=== PATIENT | male | born 1970 | race Caucasian/White ===

== ENCOUNTER → 2016-04-14 | Outpatient (CLI) | payer BC ==
[~2016-04-14] MED LIST: CZR50 PO; PRLSR20 PO
[2016-04-14 10:18] LABS: URINE APPEARANCE CLEAR (CLEAR); URINE BILIRUBIN NEG (NEG); URINE COLOR YELLOW; URINE NITRITE NEG (NEG); URINE PH 7.5 (4.5-7.5); URINE SPECIFIC GRAVITY 1.013 (1.000-1.030); UROBILINOGEN NEG (NEG)
[2016-04-14 10:19] LABS: MANUAL MICROSCOPIC REQUIRED? NO; REVIEW REQ? NO
[2016-04-14 10:29] LABS: BLOOD UREA NITROGEN 25 mg/dl (7-18); GLUCOSE 109 mg/dl (70-99)
[2016-04-14 10:30] LABS: BUN/CREATININE RATIO 22.9 (10-20); CALCIUM 9.3 mg/dl (8.5-10.1); CARBON DIOXIDE 29 mmol/L (21-32); CHLORIDE 100 mmol/L (98-107); PHOSPHORUS 3.1 mg/dl (2.5-4.9); SODIUM 138 mmol/L (136-145)
== END | disposition home or self-care (01) ==
LOC: C.LAB1850 09:21
PROVIDERS: ATTEND Internal Medicine Nephrology
DX: I10 Essential (primary) hypertension (principal); R31.29 Other microscopic hematuria

== ENCOUNTER → 2016-04-14 | Outpatient (CLI) | payer BC ==
--- NOTE | 2016-04-14 09:23 | DIAGNOSTIC IMAGING REPORT ---
ULTRASOUND KIDNEYS AND BLADDER CLINICAL HISTORY: Hypertension. COMPARISON STUDY: Abdominal CT dated 04/01/2012. TECHNIQUE: Real-time, grayscale, and color flow sonography of the kidneys and bladder is performed. Images are reviewed in the transverse and longitudinal planes. FINDINGS: Kidneys: The kidneys are normal in size and echotexture. The right kidney measures 11.4 x 5.8 x 4.9 cm and the left kidney measures 10.7 x 5.3 x 5.2 cm. There is no hydronephrosis. No shadowing renal calculi are identified. There is no sonographic evidence of contour deforming renal mass lesion. No perinephric fluid is identified. Bladder: The partially decompressed bladder is grossly normal in appearance. Ureteral jets were not seen. Survey images of the right upper quadrant shown echogenic liver consistent with steatosis. IMPRESSION: 1. The kidneys are normal in size and without hydronephrosis. 2. The partially decompressed bladder is grossly unremarkable. 3. Hepatic steatosis. Electronically signed by: Tim Irene M.D. 04/14/2016 9:21 AM Dictated Date/Time: 04/14/2016 9:20 AM
--- NOTE | 2016-04-14 09:25 | DIAGNOSTIC IMAGING REPORT ---
DUPLEX RENAL ARTERY ULTRASOUND HISTORY: I10 Uncontrolled hypertension COMPARISON STUDY: Abdomen and pelvis CT 04/01/2012. FINDINGS: The peak systolic velocity within the right renal artery was 80 cm/s. The peak systolic velocity within the left renal artery was 115 cm/s proximally. All resistive indices of the renal arcuate arteries were less than 0.6 IMPRESSION: No evidence for renal artery stenosis. Electronically signed by: Harsha Rae M.D. 04/14/2016 9:23 AM Dictated Date/Time: 04/14/2016 9:21 AM
== END | disposition home or self-care (01) ==
LOC: C.ULTR 08:37
PROVIDERS: ATTEND Internal Medicine Nephrology
DX: I10 Essential (primary) hypertension (principal)

== ENCOUNTER 2017-05-09 12:20 | Observation (INO) | payer BC, OTHER ==
[~2017-05-09] VITALS: Ht 170.2 cm; Wt 88.1 kg
--- NOTE | 2017-05-09 13:10 | EMERGENCY ROOM VISIT NOTE ---
History Report prepared by Ita: Mariana Roca Under the Supervision of: Dr. Vicente Angeles M.D. First contact with patient: 13:00 Chief Complaint: CHEST PAIN Stated Complaint: L ARM PAIN, DIZZY Nursing Triage Summary: Patient with left upper arm pain to elbow for the last two days Chest pain in the waiting room History of Present Illness The patient is a 47 year old male who presents to the Emergency Room with complaints of persistent left arm pain for three hours. He notes the pain began a couple of days ago and was intermittent, though today the pain is persistent and has been ongoing for three hours. He states that he feels the pain is mostly in his left elbow. He currently rates his pain a 2/10 in severity. He notes brief chest pain that last for a second earlier today, while waiting in the ED. He denies any shortness of breath. He denies any headache, though notes dizziness. He denies any history of DM or HLD. He has a history of HTN. He denies any neck pain. He denies any leg swelling or injures to arm. He took 324 mg Aspirin today. He is right hand dominant. Source of History: patient Onset: three hours Position: arm (left) Symptom Intensity: 2/10 Timing: other (persistent) Associated Symptoms: + chest pain, No headache, No neck pain, No SOB Note: He notes dizziness. He notes pain in elbow. He denies any leg swelling or injuries to arm. Review of Systems See HPI for pertinent positives & negatives. A total of 10 systems reviewed and were otherwise negative. Past Medical & Surgical Medical Problems: (1) Atypical angina (2) Diverticulitis Colon (W/O Ment Of Hemorrhage) (3) Hyperlipidemia Nec/Nos (4) Hypertension Nos Surgical Problems: (1) History of appendectomy Old medical records were reviewed. Nurse's notes were reviewed and I agree with. Family History Cancer Diabetes mellitus Heart disease Hypertension Social History Smoking Status: Former Smoker Drug Use: none Marital Status: Housing Status: lives with family Occupation Status: employed Current/Historical Medications Scheduled Carvedilol (Coreg), 6.25 MG PO BID Esomeprazole Magnesium (Nexium), 20 MG PO QAM Hctz/Losartan (Hyzaar 25MG/100MG), 1 TAB PO QAM Allergies Coded Allergies: No Known Allergies (Verified , 05/09/17) Physical Exam Vital Signs Date Time Temp Pulse Resp B/P (MAP) Pulse Ox O2 Delivery O2 Flow Rate FiO2 05/09/17 17:26 80 20 165/97 98 Room Air 05/09/17 16:35 79 20 135/78 99 Room Air 05/09/17 15:38 72 20 151/91 98 Room Air 05/09/17 14:31 75 20 151/89 94 Room Air 05/09/17 12:59 92 Room Air 05/09/17 12:57 36.9 05/09/17 12:53 82 05/09/17 12:50 Room Air 05/09/17 12:36 87 16 139/85 94 Room Air Physical Exam General: Non-ill appearing middle-aged male in no acute distress. HEENT: Normal cephalic atraumatic. Pupils are equal round and reactive to light. Sclerae anicteric. Extraocular movements are intact. Oropharynx is pink with moist mucous membranes. No swelling of the mouth lips or tongue. Neck: Supple with a midline trachea. No meningeal signs or stiffness, no JVD or bruits. No Stridor. Chest: Clear to auscultation bilaterally. No wheezes or rhonchi. No increased work of breathing. Heart: regular rate and rhythm. Abdomen: Soft nontender, nondistended without rebound guarding or rigidity. Extremities: No cyanosis clubbing or edema. No calf tenderness or assymetry. Normal pulse exam. Non reproducible tenderness to left arm. Spine/Back. Non tender to palpation. No CVA tenderness Skin: Good turgor without rashes. Neurologic exam: Cranial nerves two through 12 are intact. Motor and sensation are intact and symmetrical throughout. Medical Decision & Procedures ER Provider Diagnostic Interpretation: Radiology results as stated below per my review and radiologist interpretation: CHEST ONE VIEW PORTABLE CLINICAL HISTORY: 47 years-old Male presenting with chest, left upper arm pain. TECHNIQUE: Portable upright AP view of the chest was obtained. COMPARISON: None. FINDINGS: Cardiomediastinal silhouette normal. Lungs and pleural spaces clear. Degenerative changes of the thoracic spine. Right cervical C7 rib noted. Upper abdomen normal. IMPRESSION: 1. No acute cardiopulmonary disease. Electronically signed by: Valentin Silver M.D. 05/09/2017 1:25 PM Dictated Date/Time: 05/09/2017 1:24 PM L VENOUS DOPPLER UPR EXT UNIL CLINICAL HISTORY: 47 years-old Male presenting with eval for DVT. TECHNIQUE: Real-time grayscale and color and spectral Doppler ultrasound imaging of the veins of the left upper extremity was performed. Compression and augmentation were also utilized. COMPARISON: None. FINDINGS: Left: Internal jugular vein: Patent. Subclavian vein: Patent. Axillary vein: Patent. Basilic vein: Patent. Brachial vein: Duplicated veins patent. Cephalic vein: Patent. Radial vein: Patent. Ulnar vein: Patent. Other: None. IMPRESSION: No evidence of deep venous thrombosis. Electronically signed by: Valentin Silver M.D. 05/09/2017 3:43 PM Dictated Date/Time: 05/09/2017 3:42 PM Laboratory Results 05/09/17 12:50 05/09/17 12:50 Test 05/09/17 12:50 Red Blood Count 5.37 M/uL (4.7-6.1) Mean Corpuscular Volume 85.8 fL (80-100) Mean Corpuscular Hemoglobin 31.8 pg (25-34) Mean Corpuscular Hemoglobin Concent 37.1 g/dl (32-36) RDW Standard Deviation 38.5 fL (36.4-46.3) RDW Coefficient of Variation 12.2 % (11.5-14.5) Mean Platelet Volume 9.2 fL (7.4-10.4) Prothrombin Time 10.3 SECONDS (9.0-12.0) Prothromb Time International Ratio 1.0 (0.9-1.1) Activated Partial Thromboplast Time 26.6 SECONDS (21.0-31.0) Partial Thromboplastin Ratio 1.0 Anion Gap 8.0 mmol/L (3-11) Est Creatinine Clear Calc Drug Dose 61.1 ml/min Estimated GFR () 65.6 Estimated GFR (Non- 56.6 BUN/Creatinine Ratio 14.3 (10-20) Calcium Level 9.1 mg/dl (8.5-10.1) Total Bilirubin 0.8 mg/dl (0.2-1) Aspartate Amino Transf (AST/SGOT) 26 U/L (15-37) Alanine Aminotransferase (ALT/SGPT) 67 U/L (12-78) Alkaline Phosphatase 58 U/L (45-117) Total Creatine Kinase 152 U/L (39-308) Creatine Kinase MB 1.7 ng/ml (0.5-3.6) Creatine Kinase MB Ratio 1.1 (0-3.0) Troponin I < 0.015 ng/ml (0-0.045) Total Protein 8.0 gm/dl (6.4-8.2) Albumin 4.3 gm/dl (3.4-5.0) Globulin 3.7 gm/dl (2.5-4.0) Albumin/Globulin Ratio 1.2 (0.9-2) Laboratory studies as stated above per my review. ECG Indication: other (left arm pain) Rate (beats per minute): 77 Rhythm: normal sinus Findings: nonspecific-ST abn, RBBB Comparison ECG Date: no prior available Change: Repeat ECG: Normal Sinus Rhythm 69 bpm Findings: Incomplete RBBB, Nonspecific ST abnormalities, TWI laterally Patient's electrocardiogram was interpreted by me. ED Course 1301: Past medical records reviewed. The patient was evaluated in room B2, and a complete history and physical examination were performed. 1430: I reassessed the patient at this time. He appears comfortable. I discussed the results and treatment plan with the patient. I answered all pertaining questions that he had. 1540: I reassessed the patient at this time. He wants to go home. I ordered a repeat ECG and troponin. 1621: I reassessed the patient at this time. I discussed the results and treatment plan with the patient. I answered all pertaining questions that he had. He expressed understanding and verbalized agreement. The patient will be further evaluated. 1634: I spoke with Dr. Brothers, hospitalist. We discussed the patient's case. The patient will be evaluated by the [facility] for further management. Medical Decision Differentials include, but are not limited to cardiac disease, ms, DVT, and electrolyte or metabolic abnormality. This patient comes in as described above he's had left arm pain for the last several days it lasts several hours at a time he hasn't no chest pain shortness breath or other symptoms. It is focally in 1 area. There was no injury. He has 2+ distal pulses and is not particularly reproducible. There is no evidence suggest a muscular tear. He had an EKG which did not show any definite ischemic changes. Chest x-ray was unremarkable. His cardiac biomarkers initially are negative. He has no acute electrolyte or metabolic abnormalities. I did ultrasound which was unremarkable and shows no evidence of DVT. A follow-up troponin shows no change. A follow-up EKG shows T-wave slight inversions and these may be slightly worse than before where they were more flattened initially. This is a potentially subtle change but given his multiple cardiac risk factors. I do think would benefit from a cardiac workup and inpatient/observation rule out. He has taken aspirin prior to arrival. I did consult Dr. Brothers who did see him in the emergency department for these measures. The patient and his agree with the plan. Medication Reconcilliation Current Medication List: was personally reviewed by me Blood Pressure Screening Patient's blood pressure: Elevated blood pressure Referred to hospitalist. Consults Time Called: 1626 Consulting Physician: Dr. Brothers, hospitalist Returned Call: [address] Brothers, hospitalist. We discussed the patient's case. The patient will be evaluated by the [facility] for further management. Impression Primary Impression: Left arm pain Additional Impressions: Acute electrocardiogram changes Left sided chest pain Scribe Attestation The scribe's documentation has been prepared under my direction and personally reviewed by me in its entirety. I confirm that the note above accurately reflects all work, treatment, procedures, and medical decision making performed by me. Departure Information Dispostion Being Evaluated By Hospitalist Referrals Oralia Nelson DO (PCP) Patient Instructions My [facility] Health Problem Qualifiers
[2017-05-09 13:11] LABS: HEMATOCRIT 46.1 % (42-52); HEMOGLOBIN 17.1 g/dL (14.0-18.0); MEAN CELL VOLUME 85.8 fL (80-100); MEAN CORPUSCULAR HEMOGLOBIN 31.8 pg (25-34); MEAN CORPUSCULAR HGB CONC 37.1 g/dl (32-36); MEAN PLATELET VOLUME 9.2 fL (7.4-10.4); PLATELET COUNT 280 K/uL (130-400); RED CELL DISTRIBUTION WIDTH CV 12.2 % (11.5-14.5); RED CELL DISTRIBUTION WIDTH SD 38.5 fL (36.4-46.3)
[2017-05-09 13:22] LABS: PTT PATIENT 26.6 SECONDS (21.0-31.0)
[2017-05-09 13:25] LABS: ALBUMIN 4.3 gm/dl (3.4-5.0); BLOOD UREA NITROGEN 21 mg/dl (7-18); CALCIUM 9.1 mg/dl (8.5-10.1); CARBON DIOXIDE 28 mmol/L (21-32); GLUCOSE 111 mg/dl (70-99); POTASSIUM 3.5 mmol/L (3.5-5.1); SODIUM 135 mmol/L (136-145)
--- NOTE | 2017-05-09 13:26 | DIAGNOSTIC IMAGING REPORT ---
CHEST ONE VIEW PORTABLE CLINICAL HISTORY: 47 years-old Male presenting with chest, left upper arm pain. TECHNIQUE: Portable upright AP view of the chest was obtained. COMPARISON: None. FINDINGS: Cardiomediastinal silhouette normal. Lungs and pleural spaces clear. Degenerative changes of the thoracic spine. Right cervical C7 rib noted. Upper abdomen normal. IMPRESSION: 1. No acute cardiopulmonary disease. Electronically signed by: Valentin Silver M.D. 05/09/2017 1:25 PM Dictated Date/Time: 05/09/2017 1:24 PM
[2017-05-09 13:27] LABS: ALT/SGPT 67 U/L (12-78); AST/SGOT 26 U/L (15-37); CREATININE 1.44 mg/dl (0.60-1.40)
[2017-05-09 13:36] LABS: ALKALINE PHOSPHATASE 58 U/L (45-117); CKMB 1.7 ng/ml (0.5-3.6)
[2017-05-09] MEDS ORDERED: CARV6.252 PO (14:16)
[2017-05-09] MEDS ORDERED: HYZ/10015 PO (14:16)
[2017-05-09] MEDS ORDERED: ESOM20CA PO (14:16)
--- NOTE | 2017-05-09 15:44 | DIAGNOSTIC IMAGING REPORT ---
L VENOUS DOPPLER UPR EXT UNIL CLINICAL HISTORY: 47 years-old Male presenting with eval for DVT. TECHNIQUE: Real-time grayscale and color and spectral Doppler ultrasound imaging of the veins of the left upper extremity was performed. Compression and augmentation were also utilized. COMPARISON: None. FINDINGS: Left: Internal jugular vein: Patent. Subclavian vein: Patent. Axillary vein: Patent. Basilic vein: Patent. Brachial vein: Duplicated veins patent. Cephalic vein: Patent. Radial vein: Patent. Ulnar vein: Patent. Other: None. IMPRESSION: No evidence of deep venous thrombosis. Electronically signed by: Valentin Silver M.D. 05/09/2017 3:43 PM Dictated Date/Time: 05/09/2017 3:42 PM
[2017-05-09] MEDS ORDERED: ACETAMINOPHEN 325 MG TAB PO PRN (16:45)
[2017-05-09] MEDS ORDERED: MAGNESIUM HYDROXIDE SUSP 30 ML UDC PO PRN (16:45)
[2017-05-09] MEDS ORDERED: NITROGLYCERIN 0.4 MG SL PER TAB CHARGE SL PRN (16:45)
[2017-05-09] MEDS ORDERED: ONDANSETRON INJ 2 MG/ML 2 ML VIAL IV PRN (16:45)
[2017-05-09] MEDS ORDERED: ALUMINUM/MAGNESIUM/SIMETH (MAALOX MAX) 30 ML UDC PO PRN (16:45)
[2017-05-09] MEDS ORDERED: IBUPROFEN 600 MG TAB PO PRN (17:00)
[2017-05-09] MEDS ORDERED: LORAZEPAM 0.5 MG TAB PO PRN (17:00)
[2017-05-09] MEDS ORDERED: HydrALAZINE HCL 20 MG/ML VIAL IV PRN (17:00)
--- NOTE | 2017-05-09 17:05 | History and Physical ---
History & Physical Date & Time of Service: May 09, 2017 at 16:59 Chief Complaint: L Arm Pain, Dizzy Primary Care Physician: No Doctor, Assigned History of Present Illness This patient presents with chronic persistent left arm pain in the biceps area this is been worsened today but present for last 2-3 days. He is a family history of heart disease and a personal history of hypertension and dyslipidemia. He's concerned that at times he may have felt a little bit lightheaded or dizzy with this. It is not necessarily reproducible by moving his arm nor is it worsened by cardiovascular exertion. The patient's had a negative initial evaluation with the exception of lateral T-wave flattening seen on his EKG. The patient's had no nausea or diaphoresis or shortness of breath associated with this discomfort. He does not have a job that requires physical labor or repetitive movements of his arm. The pain is not necessarily reproducible to exam he states he currently is 2-3 out of 10 is a dull ache and difficult to describe he has no associated chest pain pressure or discomfort The patient denies any other recent changes in his health or medications he does suffer from dyspepsia taking a proton pump inhibitor he has failed statins in the past due to LFT abnormalities. He is accompanied by significant other in the ER Past Medical/Surgical History Medical Problems: (1) Diverticulitis Colon (W/O Ment Of Hemorrhage) Status: Resolved (2) Hyperlipidemia Nec/Nos Status: Chronic (3) Hypertension Nos Status: Chronic Surgical Problems: (1) History of appendectomy Status: Resolved Family History Cancer Diabetes mellitus Heart disease Hypertension Social History Smoking Status: Former Smoker Drug Use: none Marital Status: Occupational Status: employed Immunizations History of Influenza Vaccine: No History of Tetanus Vaccine?: Unknown History of Pneumococcal: No History of Hepatitis B Vaccine: No Multi-Drug Resistant Organisms History of MDRO: No Allergies Coded Allergies: No Known Allergies (Verified , 05/09/17) Home Medications Scheduled Carvedilol (Coreg), 6.25 MG PO BID Esomeprazole Magnesium (Nexium), 20 MG PO QAM Hctz/Losartan (Hyzaar 25MG/100MG), 1 TAB PO QAM Review of Systems ROS: well nourished well developed No double vision blurry vision No problems with speech or swallowing No palpitations, chest pain or pressure No Wheezing or breathing issues No abdominal pain nausea vomiting diarrhea changes in appetite or weight No burning urine urine frequency or changes in color He has focal left bicep pain to his antecubital area is bicep tendons are not tender in the muscles not swollen or firm in anyway No skin rashes or oral lesions No unusual bruising or bleeding No focused back pain or numbness or loss of strength No changes in memory or confusion Physical Exam Vital Signs Date Time Temp Pulse Resp B/P (MAP) Pulse Ox O2 Delivery O2 Flow Rate FiO2 05/09/17 15:38 72 20 151/91 98 Room Air 05/09/17 14:31 75 20 151/89 94 Room Air 05/09/17 12:59 92 Room Air 05/09/17 12:57 36.9 05/09/17 12:53 82 05/09/17 12:50 Room Air 05/09/17 12:36 87 16 139/85 94 Room Air General Appearance: WD/WN, + mild distress Head: normocephalic, atraumatic Eyes: normal inspection, sclerae normal ENT: hearing grossly normal, pharynx normal Respiratory/Chest: chest non-tender, lungs clear, normal breath sounds Cardiovascular: regular rate, rhythm Abdomen/GI: normal bowel sounds, non tender, soft Back: no CVA tenderness, no muscle spasm Extremities/Musculoskelatal: normal inspection, normal capillary refill, no pedal edema, normal range of motion, + pertinent finding (he states examining does make it feel slightly worse but not significantly to the left bicep area) Neurologic/Psych: alert, oriented x 3 Skin: normal color, warm/dry, no rash Diagnostics Laboratory Results Results Past 24 Hours Test 05/09/17 12:50 Range/Units White Blood Count 6.20 4.8-10.8 K/uL Red Blood Count 5.37 4.7-6.1 M/uL Hemoglobin 17.1 14.0-18.0 g/dL Hematocrit 46.1 42-52 % Mean Corpuscular Volume 85.8 80-100 fL Mean Corpuscular Hemoglobin 31.8 25-34 pg Mean Corpuscular Hemoglobin Concent 37.1 32-36 g/dl RDW Standard Deviation 38.5 36.4-46.3 fL RDW Coefficient of Variation 12.2 11.5-14.5 % Platelet Count 280 130-400 K/uL Mean Platelet Volume 9.2 7.4-10.4 fL Prothrombin Time 10.3 9.0-12.0 SECONDS Prothromb Time International Ratio 1.0 0.9-1.1 Activated Partial Thromboplast Time 26.6 21.0-31.0 SECONDS Partial Thromboplastin Ratio 1.0 Sodium Level 135 136-145 mmol/L Potassium Level 3.5 3.5-5.1 mmol/L Chloride Level 99 98-107 mmol/L Carbon Dioxide Level 28 21-32 mmol/L Anion Gap 8.0 3-11 mmol/L Blood Urea Nitrogen 21 7-18 mg/dl Creatinine 1.44 0.60-1.40 mg/dl Est Creatinine Clear Calc Drug Dose 61.1 ml/min Estimated GFR () 65.6 Estimated GFR (Non- 56.6 BUN/Creatinine Ratio 14.3 10-20 Random Glucose 111 70-99 mg/dl Calcium Level 9.1 8.5-10.1 mg/dl Total Bilirubin 0.8 0.2-1 mg/dl Aspartate Amino Transf (AST/SGOT) 26 15-37 U/L Alanine Aminotransferase (ALT/SGPT) 67 12-78 U/L Alkaline Phosphatase 58 45-117 U/L Total Creatine Kinase 152 39-308 U/L Creatine Kinase MB 1.7 0.5-3.6 ng/ml Creatine Kinase MB Ratio 1.1 0-3.0 Troponin I < 0.015 0-0.045 ng/ml Total Protein 8.0 6.4-8.2 gm/dl Albumin 4.3 3.4-5.0 gm/dl Globulin 3.7 2.5-4.0 gm/dl Albumin/Globulin Ratio 1.2 0.9-2 Diagnostic Radiology Normal left upper extremity Doppler CXR normal other (normal sinus rhythm with lateral T-wave flattening) Impression Assessment and Plan 47-year-old male with atypical arm pain concern for atypical angina \ Patient will be observed on telemetry unit serial troponins will be obtained if negative the patient will undergo a stress echocardiogram. For his hypertension his medications of Coreg losartan hydrochlorothiazide will be continued with hydralazine for hypertensive needs. For his history of dyspepsia proton pump inhibitor DVT prevention is early ambulation early ambulation Level of Care Telemetry Resuscitation Status FULL RESUSCITATION VTE Prophylaxis VTE Risk Assessment Done? Y/N: Yes Risk Level: Moderate Given or contraindicated: Treatment not indicated
[2017-05-09 18:19] VITALS: BP 132/84; PULSE 71; TEMP 37.1; O2SAT 95; Ht 170.2 cm; Wt 88.1 kg
[2017-05-09 19:21] VITALS: BP 152/93; PULSE 76; TEMP 36.6; O2SAT 95
[2017-05-09] MEDS: CARVEDILOL 6.25 MG TAB PO SCH (21:02)
[2017-05-09] MEDS ORDERED: IV FLUIDS COMPLETED PRN (21:30)
[2017-05-10] VITALS: BP 132/77; PULSE 71; TEMP 36.9; O2SAT 94
[2017-05-10 04:00] VITALS: BP 124/75; PULSE 67; TEMP 36.3; O2SAT 96
[2017-05-10 04:26] LABS: HEMATOCRIT 43.2 % (42-52); HEMOGLOBIN 15.8 g/dL (14.0-18.0); MEAN CELL VOLUME 86.6 fL (80-100); MEAN CORPUSCULAR HEMOGLOBIN 31.7 pg (25-34); MEAN CORPUSCULAR HGB CONC 36.6 g/dl (32-36); MEAN PLATELET VOLUME 9.1 fL (7.4-10.4); PLATELET COUNT 248 K/uL (130-400); RED CELL DISTRIBUTION WIDTH CV 12.4 % (11.5-14.5); RED CELL DISTRIBUTION WIDTH SD 39.5 fL (36.4-46.3); WHITE BLOOD COUNT 6.75 K/uL (4.8-10.8)
[2017-05-10 04:42] LABS: BLOOD UREA NITROGEN 27 mg/dl (7-18); CALCIUM 8.9 mg/dl (8.5-10.1); CARBON DIOXIDE 32 mmol/L (21-32); CREATININE 1.26 mg/dl (0.60-1.40); GLUCOSE 106 mg/dl (70-99); POTASSIUM 3.4 mmol/L (3.5-5.1); SODIUM 137 mmol/L (136-145)
[2017-05-10 04:46] LABS: CHOLESTEROL 285 mg/dl (0-200)
[2017-05-10 07:36] VITALS: BP 147/88; PULSE 67; TEMP 36.6; O2SAT 94
[2017-05-10] MEDS ORDERED: POTASSIUM CHLORIDE 20 MEQ TABCR PO ONE (09:00)
[2017-05-10] MEDS ORDERED: LOSARTAN/HCTZ 50-12.5 EA TAB PO SCH (09:00)
[2017-05-10] MEDS ORDERED: PANTOprazole SOD 40 MG TAB PO SCH (09:00)
[2017-05-10] MEDS ORDERED: FENO1TAB24 PO (09:59)
--- NOTE | 2017-05-10 09:59 | Discharge Instructions ---
Discharge Instructions Date of Service May 10, 2017. Admission Reason for Admission: Atypical Angina Discharge Discharge Diagnosis / Problem: Atypical chest pain Discharge Goals Goal(s): Decrease discomfort, Improve function, Increase independence, Improve disease control Activity Recommendations Activity Limitations: resume your previous activity Lifting Limitations: none Exercise/Sports Limitations: none May Resume Sexual Activity: when tolerated Shower/Bathe: no limitations Driving or Machine Use: no limitations . Instructions / Follow-Up Instructions / Follow-Up You were admitted to [facility] with atypical chest pain. During your stay here your cardiac markers were checked and negative x 3, you underwent stress echocardiogram and this was also negative for any signs of cardiac involvement. You were treated with other supportive care. Start participating in cardio-aerobic exercise for 25 min, 5 days per week. Medications: Start taking fenofibrate 145 mg daily for elevated lipids. You can discuss this with your family physician. This has been started as an alternative, as you developed elevated liver enzymes with taking traditional statins in the past. Continue taking your medications as above. Appointments: Follow up with your Primary Care Provider within 1 week. Current Hospital Diet Patient's current hospital diet: AHA Diet (Heart Healthy) Discharge Diet Recommended Diet: AHA Diet (Heart Healthy) Pending Studies Studies pending at discharge: no Laboratory Results Lipid Panel Test 05/10/17 04:17 Range/Units Triglycerides Level 536 H 0-150 mg/dl Cholesterol Level 285 H 0-200 mg/dl HDL Cholesterol 38 mg/dl Cholesterol/HDL Ratio 7.5 LDL Cholesterol, Calculated mg/dl Medical Emergencies . Who to Call and When: Medical Emergencies: If at any time you feel your situation is an emergency, please call 911 immediately. . Non-Emergent Contact Non-Emergency issues call your: Primary Care Provider Call Non-Emergent contact if: you have a fever, temperature is above 100.5, your pain is not controlled, your pain is worsening, your pain is unusual for you, your pain is concerning you, you have any medication questions other concerns with your health. Call 911 or go directly to the Emergency Department if you experience any of the following: Chest pain, chest tightness, shortness of breath, abdominal pain , lightheadedness, dizziness, gastrointestinal bleeding, or have any other concerns regarding your health. . Past History Medical & Surgical History: (1) Atypical angina (2) Hypertension Nos (3) Hyperlipidemia Nec/Nos . "Provider Documentation" section prepared by Vicki Jules. . VTE Core Measure Inpt VTE Proph given/why not?: Treatment not indicated
--- NOTE | 2017-05-10 10:09 | Discharge Summary ---
Discharge Summary Date of Service May 10, 2017. Discharge Summary Admission Date: May 09, 2017 at 16:38 Discharge Date: May 10, 2017 Discharge Disposition: Home Principal Diagnosis: Atypical angina Problems/Secondary Diagnoses: Medical Problems: (1) Atypical angina (2) Diverticulitis Colon (W/O Ment Of Hemorrhage) (3) Hyperlipidemia Nec/Nos (4) Hypertension Nos Surgical Problems: (1) History of appendectomy Immunizations: Have You Had Influenza Vaccine: No History of Tetanus Vaccine?: Unknown History of Pneumococcal: No History of Hepatitis B Vaccine: No Procedures: CXR one view portable 05/09/17 IMPRESSION: 1. No acute cardiopulmonary disease. L VENOUS DOPPLER UPR EXT UNIL 05/09/17 IMPRESSION: No evidence of deep venous thrombosis. Stress Echocardiogram 05/10/17 Interpretation Summary * -- Conclusions -- * 1. Normal stress echocardiogram at 10.3 METs and peak heart rate of 86% predicted maximum. * 2. No exercise-induced chest pain. * 3. No EKG changes. * 4. Baseline echocardiogram notes normal left ventricular systolic function and mild left ventricular hypertrophy. Medication Reconciliation New Medications: Fenofibrate (Fenofibrate) 145 Mg Tab 1 TAB PO DAILY for 30 Days, #30 TAB 0 Refills Continued Medications: Carvedilol (Coreg) 6.25 Mg Tab 6.25 MG PO BID Esomeprazole Magnesium (Nexium) 20 Mg Capcr 20 MG PO QAM, CAP Hctz/Losartan (Hyzaar 25MG/100MG) Tab 1 TAB PO QAM Discharge Exam The patient was seen and examined this morning. Pt reports doing well today. He has just completed stress test which was normal per Dr. Chino. He denies any onset of acute chest pain, shortness of breath, headache, dizziness, palpitations or flutter overnight. Pts is present at bedside. Discussion was held regarding limiting alcohol intake as he does have about 5 glasses of red wine per week. Denies tobacco use. Pt has father who had multiple MIs in his 50s and has since . Pt was encouraged to exercise, 25 min of cardio-aerobic activity daily. Try to eat fresh fruits and vegetables more often and limit high carb/fatty foods. ROS: 6 point ROS was reviewed and otherwise negative. Physical Exam: General Appearance: WD/WN, no apparent distress, + pertinent finding ( overweight) Eyes: PERRL, EOMI ENT: hearing grossly normal, pharynx normal Neck: supple, no JVD Respiratory/Chest: chest non-tender, lungs clear, normal breath sounds, no respiratory distress, no accessory muscle use Cardiovascular: regular rate, rhythm, + systolic murmur Abdomen / GI: normal bowel sounds, non tender, soft Extremities: normal inspection, no calf tenderness, no pedal edema Neurologic/Psychiatric: alert, normal reflexes, oriented x 3 Skin: normal color, warm/dry Hospital Course 47-year-old male with atypical arm pain concern for atypical angina Atypical Angina - Patient was observed on telemetry - Serial troponins negative x 3. - Stress echo was completed without acute findings. - Discussed with Dr. Chino prior to discharge. - Discussed diet and exercise regimen with the patient. Also encouraged him to limit alcohol intake as he has 5 glasses of wine per week. - Lipid panel completed and showing elevation in triglycerides - pt has not tolerated 1 statin in the past, but he cannot recall the name of this. It caused elevated liver enzymes. We will start him on fenofibrate 145 mg daily and ask to follow up with PCP within 1 week. Hypertension - Cont Coreg losartan hydrochlorothiazide will be continued with hydralazine for hypertensive needs. Dyspepsia - cont proton pump inhibitor DVT prevention is early ambulation Disposition: From home, discharge today. Total Time Spent: Greater than 30 minutes This includes examination of the patient, discharge planning, medication reconciliation, and communication with other providers. Discharge Instructions Please refer to the electronic Patient Visit Report (Discharge Instructions) for additional information. Follow-Up Follow up with your Primary Care Provider within 1 week.
[2017-05-10 10:10] VITALS: BP 147/88; PULSE 67; TEMP 36.6; O2SAT 94
[2017-05-10] MEDS: CARVEDILOL 6.25 MG TAB PO SCH (10:36)
--- NOTE | 2017-05-10 13:05 | EXERCISE STRESS ECHO ---
*NOTICE TO RECEIVING [employer] This information is strictly Confidential and protected under [place] law. [place] law prohibits you from making any further disclosure of this information unless further disclosure is expressly permitted by the written consent of the person to whom it pertains or is authorized by law. A general authorization for the release of medical or other information is not sufficient for this purpose. Hospital accepts no responsibility if the information is made available to any other person, INCLUDING THE PATIENT. Interpretation Summary * Name: SANAM BISWAS Study Date: 05/10/2017 07:37 AM BP: 136/87 mmHg * Patient Location: C.2T\S\S229\S\1 HR: 76 * : 1970 (M/d/yyyy) Gender: Male Height: 64 in * Age: 47 yrs Ethnicity: [place] Weight: 187 lb * Ordering Physician: Gildardo Brothers * Referring Physician: Self, Referred * Performed By: Cassidy Moreno RDCS * * Reason For Study: Chest pain * BSA: 1.9 m2 * -- Conclusions -- * 1. Normal stress echocardiogram at 10.3 METs and peak heart rate of 86% predicted maximum. * 2. No exercise-induced chest pain. * 3. No EKG changes. * 4. Baseline echocardiogram notes normal left ventricular systolic function and mild left ventricular hypertrophy. Procedure Details * ECHOEX, CPT #[id number] * ECHO DOPPLER, CPT #[id number] * ECHO COLOR FLOW, CPT #[id number] Left Ventricle * The left ventricle is normal in size. * There is mild concentric left ventricular hypertrophy. * Ejection Fraction = 55-60%. * Left ventricular systolic function is normal. * Resting wall motion: Normal. Stress wall motion: Appropriate increase in Left ventricular systolic function and decrease in cavity size. No stress induced segmental wall motion abnormalities. Right Ventricle * The right ventricle is normal size. * The right ventricular systolic function is normal as assessed by tricuspid annular plane systolic excursion (TAPSE) (normal >1.5 cm). Atria * The left atrial size is normal. * Right atrial size is normal. * There is no evidence of atrial septal defect, but resolution does not allow assessment for a patent foramen ovale. Mitral Valve * The mitral valve anatomy is normal. * There is no mitral valve stenosis. * There is trace mitral regurgitation. Tricuspid Valve * The tricuspid valve anatomy is normal. * There is no tricuspid stenosis. * There is trace tricuspid regurgitation. Aortic Valve * The aortic valve opens well. * The aortic valve is trileaflet. * No hemodynamically significant valvular aortic stenosis. * There is no significant aortic regurgitation. Pulmonic Valve * The pulmonary valve is not well seen, but the Doppler examination is normal without significant regurgitation or stenosis. Great Vessels * The aortic root is normal size. * The pulmonary is not well visualized. Pericardium * There is no pericardial effusion. Stress Parameters * The baseline ECG displays normal sinus rhythm. * Stress ECG: No ST changes. No arrhythmias. * The stress portion of this study was personally supervised by the undersigned interpreting physician. * Rest heart rate was '76' BPM. * Rest blood pressure was '136/87' * Maximum heart rate achieved was 148 bpm. * Maximum heart rate was 86 % of maximum age-predicted heart rate. * Maximum blood pressure was '208/82' * Total exercise time was '9:10' * Maximum exercise MET level achieved was '10.30' METS * Maximum treadmill speed was '4.20' miles per hour. * Maximum treadmill elevation was '16.00'% grade. * Exercise was terminated due to 'achieving target heart rate' MMode 2D Measurements and Calculations IVSd 0.88 cm LVIDd 3.8 cm LVIDs 2.7 cm LVPWd 0.91 cm IVS/LVPW 0.97 FS 28.7 % EDV(Teich) 61.3 ml ESV(Teich) 26.9 ml EF(Teich) 56.1 % EDV(cubed) 54.1 ml ESV(cubed) 19.6 ml EF(cubed) 63.8 % LV mass(C)d 99.1 grams LV mass(C)dI 52.2 grams/m\S\2 SV(Teich) 34.4 ml SI(Teich) 18.1 ml/m\S\2 SV(cubed) 34.5 ml SI(cubed) 18.2 ml/m\S\2 Ao root diam 2.2 cm Ao root area 3.8 cm\S\2 ACS 1.6 cm LA dimension 2.3 cm asc Aorta Diam 2.7 cm LA/Ao 1.1 LVAd ap4 33.3 cm\S\2 LVLd ap4 8.3 cm EDV(MOD-sp4) 107.5 ml EDV(sp4-el) 112.8 ml LVAs ap4 21.0 cm\S\2 LVLs ap4 7.4 cm ESV(MOD-sp4) 49.1 ml ESV(sp4-el) 50.3 ml EF(MOD-sp4) 54.4 % EF(sp4-el) 55.4 % LVAd ap2 22.8 cm\S\2 LVLd ap2 8.0 cm EDV(MOD-sp2) 52.9 ml EDV(sp2-el) 55.3 ml LVAs ap2 14.4 cm\S\2 LVLs ap2 7.1 cm ESV(MOD-sp2) 24.2 ml ESV(sp2-el) 24.7 ml EF(MOD-sp2) 54.3 % EF(sp2-el) 55.3 % LVLd %diff -4.39 % EDV(MOD-bp) 76.7 ml LVLs %diff -4.63 % ESV(MOD-bp) 33.7 ml EF(MOD-bp) 56.1 % SV(MOD-sp4) 58.4 ml SI(MOD-sp4) 30.7 ml/m\S\2 SV(MOD-sp2) 28.7 ml SI(MOD-sp2) 15.1 ml/m\S\2 SV(MOD-bp) 43.0 ml SI(MOD-bp) 22.6 ml/m\S\2 SV(sp4-el) 62.5 ml SI(sp4-el) 32.9 ml/m\S\2 SV(sp2-el) 30.6 ml SI(sp2-el) 16.1 ml/m\S\2 Doppler Measurements and Calculations MV E max main 54.5 cm/sec MV A max main 48.5 cm/sec MV E/A 1.1 MV dec time 0.21 sec Ao V2 max 158.4 cm/sec Ao max PG 10.0 mmHg Ao max PG (full) 6.1 mmHg LV V1 max PG 4.0 mmHg LV V1 max 99.8 cm/sec PA acc slope 571.3 cm/sec\S\2 PA acc time 0.10 sec PI max main 118.1 cm/sec PI max PG 5.6 mmHg PI dec slope 89.3 cm/sec\S\2 PI P1/2t 387.3 msec PA pr(Accel) 35.3 mmHg
--- NOTE | 2017-05-12 14:53 | EDITING REQUIRED CODING QUERY ---
CHEST PAIN Dr. Ewing DOS: 05-09-17 to 05-10-17 To promote full compliance with coding requirements relating to patient care physician participation is requested in all cases of cryogenic transport driver uncertainty. Please assist us with the question(s) below: Please list a more specific chest pain diagnosis or cause of chest pain if known by placing an X within the parenthesis (x): (x ) Atypical Chest Pain ( ) Atypical angina ( ) Other (please Specify) ( ) Unable to Determine Thank you Jayla Sousa
== END 2017-05-10 11:26 | disposition home or self-care (01) ==
LOC: C.EDB 12:21 → C.2T 16:38 → ENRESERV 17:18
PROVIDERS: ADMIT Internal Medicine; ATTEND Internal Medicine
DX: R07.89 Other chest pain (principal); M79.602 Pain in left arm; E78.5 Hyperlipidemia, unspecified; E78.1 Pure hyperglyceridemia; R10.13 Epigastric pain; I10 Essential (primary) hypertension; Z87.891 Personal history of nicotine dependence; Z79.899 Other long term (current) drug therapy; R94.31 Abnormal electrocardiogram [ECG] [EKG]; Z82.49 Family history of ischemic heart disease and other diseases of the circulatory system